=== PATIENT | female | born 1990 | race American Indian/Alaskan Native ===

== ENCOUNTER 2016-09-01 23:35 | Emergency (ER) | payer SELFPAY ==
[2016-09-02 00:37] VITALS: BP 112/58
[2016-09-02 02:12] LABS: Bilirubin,Urine NEG (Negative); Blood,Urine NEG (Negative); Ketones,Urine NEG (Negative); Leukocyte Esterase,Urine NEG (Negative); Mucus,Urine FEW /HPF; Nitrite,Urine NEG (Negative); Protein,Urine <15 mg/dL mg/dL (Negative); Urobilinogen,Urine < 2.0 mg/dL (<2.0)
--- NOTE | 2016-09-02 14:13 | ED Elopement Review ---
ED Pt Elopement review - Results review Lab results: Laboratory Tests 09/02/16 Unknown Urine Color Yellow Urine Turbidity Slightly-cloudy Urine pH 6.0 Ur Specific [place] 1.024 Urine Protein <15 mg/dl Urine Glucose (UA) Neg Urine Ketones Neg Urine Blood Neg Urine Nitrite Neg Urine Bilirubin Neg Urine Urobilinogen < 2.0 Ur Leukocyte Esterase Neg Urine WBC (Auto) 4.0 Urine RBC (Auto) 3.0 U Epithel Cells (Auto) 1.0 Calcium Oxalate Crystal 3+ Urine Mucus Few Urine HCG, Qual Negative - Call Back decision Pt Call Back Decision: No action required
== END 2016-09-02 03:05 | disposition left against medical advice (07) ==
LOC: ED 23:35
DX: R10.30 Lower abdominal pain, unspecified (principal); Z53.21 Procedure and treatment not carried out due to patient leaving prior to being seen by health care provider
CPT/HCPCS: 81001; 81025

== ENCOUNTER 2020-08-06 10:19 | Emergency (ER) | payer MEDICAID ==
[2020-08-06 10:33] VITALS: BP 104/61
--- NOTE | 2020-08-06 11:00 | Emergency Department Report ---
Chief Complaint: Pain General Stated Complaint: FLU LIKE SYMPTOMS - HPI History of Present Illness: The patient was evaluated in the emergency department for symptoms described in the history of present illness. He/she was evaluated in the context of the global COVID-19 pandemic, which necessitated consideration that the patient might be at risk for infection with the virus that causes COVID-19. Institutional protocols and algorithms that pertain to the evaluation of patients at risk for COVID-19 are in a state of rapid change based on information released by regulatory bodies including the CDC and federal and state organizations. These policies and algorithms were followed during the patient's care in the emergency department. Please note that these policies, procedures and recommendations changed on a rapid basis. 30-year-old -[place] female presents to the emergency room complaining of body aches and chills that started last night. 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 Patient reports that she did take a Covid test today but did a PCR which results would not be back for 3 days. Patient denies any fever no shortness of breath or chest pain. Patient has no comorbidities. - Exam Vital Signs: Vital Signs 08/06/20 08/06/20 10:28 10:33 Temperature 98.4 F Pulse Rate 97 H Respiratory 20 Rate Blood Pressure 104/61 O2 Sat by Pulse 99 Oximetry Physical Exam: Gen: alert oriented NAD Cardic: regular rate and rhythm no murmurs appreciated Resp: Clear to auscultation bilateral no wheezing no rales or rhonchi. Abdomen: Soft nontender nondistended normal bowel sounds. Ambulatory without difficulties. MSE screening note: Focused history and physical exam performed. Due to findings the following was ordered: 30-year-old -[place] female presents to the emergency room complaining of body aches and chills that started last night. 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 Patient reports that she did take a Covid test today but did a PCR which results would not be back for 3 days. Patient denies any fever no shortness of breath or chest pain. Patient has no comorbidities. Discussed with patient she most likely has Covid and that she will need to quarantine. I instructed patient to start zinc vitamin C D3 and probiotics and to increase her water intake take the Tylenol ibuprofen as needed for body aches. Return back to the emergency room if she has any shortness of breath or chest pain. Patient verbalized understanding. ED Disposition for MSE Clinical Impression: Suspected COVID-19 virus infection Disposition: MED SCREENING EXAM-LEFT Is pt being admited?: No Does the pt Need Aspirin: No Condition: Stable Additional Instructions: Your symptoms appear most consistent with a nonspecific viral syndrome. However, given this current pandemic, COVID-19 is in the differential of possibilities. Despite your previous negative COVID-19 test, I do recommend r epeat outpatient Covid 19 testing. In the meantime, isolate/quarantine yourself and stay away from anyone who is elderly, immunocompromised or chronically ill. You can use ibuprofen every 6-8 hours and Tylenol every 4-8 hours, using the dosing on the back of the bottle, as needed for any fever or body aches. Return to the emergency department with any worsening of your symptoms, development of chest pain or shortness of breath, or with any acute distress. Referrals: PRIMARY CARE, [Primary Care Provider] - 3-5 Days Forms: Work/School Release Form(ED)
== END 2020-08-06 11:06 | disposition left against medical advice (07) ==
LOC: ED 10:19
DX: R68.83 Chills (without fever) (principal); Z20.828 Contact with and (suspected) exposure to other viral communicable diseases; Z53.21 Procedure and treatment not carried out due to patient leaving prior to being seen by health care provider